=== PATIENT | male | born 1960 | race Caucasian/White ===

== ENCOUNTER → 2018-01-30 | Outpatient (CLI) | payer SELFPAY ==
--- NOTE | 2018-01-30 12:17 | ECHOS ---
STRESS ECHOCARDIOGRAM INDICATIONS: Shortness of breath/fatigue BASELINE HEART RATE: 79 BASELINE BLOOD PRESSURE: 100/59 MAXIMUM HEART RATE: 137 MAXIMUM BLOOD PRESSURE: 215/67 85% MPHR: 139 100% MPHR: 163 METS: 11.3 MAXIMUM STAGE REACHED: 4 TOTAL EXERCISE TIME: 9:45 CLINICAL INFORMATION: History of shortness of breath and fatigue. Baseline heart rate 79 beats per minute. Baseline blood pressure 100/59 mmHg. Baseline 12-lead ECG shows sinus rhythm with normal cardiac intervals, normal ST segments. Patient exercised on a Kwasi protocol for 9 minutes 45 seconds. He was visibly short of breath towards the end of the test. Peak heart rate of 137 beats per minute, hypertensive response to exercise 215/67 mmHg. There was no ECG evidence for ischemia. No arrhythmias were noted. Baseline 2D echo showed normal LV size and systolic function without segmental wall motion abnormalities. At peak exercise, there was augmentation of overall LV contractility without developing any wall motion abnormalities. At recovery, regional global LV systolic function remained normal. IMPRESSION: 1. No obvious ECG or echocardiographic evidence for ischemia. 2. Good exercise capacity with the patient very short of breath by peak exercise. Hypertensive response to exercise was noted. MMODL / IJN: [id number] /
== END | disposition home or self-care (01) ==
LOC: RADNMMAIN 09:38
PROVIDERS: ATTEND Family Medicine
DX: R06.02 Shortness of breath (principal)
CPT/HCPCS: 93017; 93350

== ENCOUNTER 2018-03-30 17:30 | Inpatient (IN) | payer OTHER ==
[2018-03-30] MEDS ORDERED: SODIUM CHLORIDE 0.9% 1,000 ML IV ONE (17:40)
[2018-03-30] MEDS ORDERED: MIDAZOLAM 2 MG/2 ML VIAL ONE (17:44)
[2018-03-30] MEDS ORDERED: MIDAZOLAM 2 MG/2 ML VIAL IV ONE (17:50)
[2018-03-30] MEDS ORDERED: LIDOCAINE 2% INJ 20 MG/ML SQ ONE (17:54)
[2018-03-30] MEDS ORDERED: fentaNYL (PF) 50 MCG/ML 2 ML AMP ONE (17:54)
[2018-03-30] MEDS: fentaNYL (PF) 50 MCG/ML 2 ML AMP IV ONE ×2 (17:55→18:25)
[2018-03-30] MEDS ORDERED: BIVALIRUDIN BOLUS 250 MG/50 ML IV ONE (18:02)
[2018-03-30] MEDS ORDERED: BIVALIRUDIN 250 MG in SODIUM CHLORIDE 0.9% 50 ML IV ONE (18:03)
[2018-03-30] MEDS ORDERED: CLOPIDOGREL 75 MG TAB ONE ×2 (18:03)
[2018-03-30] MEDS ORDERED: CLOPIDOGREL 75 MG TAB PO ONE (18:07)
[2018-03-30] MEDS ORDERED: NITROGLYCERIN 1000MCG/10ML SYRINGE INTRACORON ONE (18:12)
[2018-03-30] MEDS ORDERED: IOPAMIDOL-370 125ML BTL INJ ONE (18:21)
[2018-03-30] MEDS ORDERED: NITROGLYCERIN SL TABS 0.4 MG TAB SUBLINGUAL PRN (18:36)
[2018-03-30] MEDS ORDERED: RX INFO: IV CONTRAST WAS GIVEN 1 EACH MISC MISCELLANE PRN (18:36)
[2018-03-30] MEDS ORDERED: MAG HYDROX/AL HYDROX/SIMETH 30 ML CUP PO PRN (18:36)
[2018-03-30] MEDS ORDERED: ATROPINE SULFATE 0.1 MG/ML 10ML SYRINGE IV PRN (18:36)
--- NOTE | 2018-03-30 18:42 | P.CRDCN ---
History of Present Illness Consult date: 03/30/18 Chief complaint: chest discomfort History of present illness: This is a pleasant 57-year-old gentleman with a past medical history significant for hypertension and dyslipidemia was transferred from the emergency room at [facility] to [facility] for an emergent heart catheterization for an acute anterior ST elevation myocardial infarction. The patient was in his usual state of health until about a few weeks ago when he started experiencing intermittent episodes of neck as well as jaw discomfort. Earlier today, the chest discomfort for was quite persistent and associated with sweating and shortness of breath. Because of that he decided to come to the emergency room at [facility] where an EKG revealed an acute anterior ST elevation myocardial infarction. The patient was transferred emergently and underwent a heart catheterization which revealed the total occlusion of the mid LAD where he underwent successful recanalizing and stenting of the LAD with a good angiographic results and without any complication. Beside that the left heart catheterization revealed elevated left ventricular end-diastolic pressure. The procedure was performed from the right groin. In terms of past medical history, he does have hypertension and dyslipidemia. The patient is a current smoker and he stated that he smoke about one pack per day. There is no family history of coronary artery disease. By the end of the procedure, the patient was pain-free. Past Medical History Past Medical History: Unable to Obtain History of Any Multi-Drug Resistant Organisms: Unobtainable Past Surgical History: Unable to Obtain Past Psychological History: Unable to Obtain Smoking Status: Unknown if ever smoked Past Alcohol Use History: Unable to Obtain Past Drug Use History: Unable to Obtain Medications and Allergies Allergies Allergy/AdvReac Type Severity Reaction Status Date / Time No Known Allergies Allergy Verified 03/30/18 17:53 Physical Exam Vitals: Intake and Output 03/30/18 03/30/18 03/30/18 06:59 14:59 22:59 Intake Total 390 Balance 390 Intake: IV 390 Other: Weight 127.006 kg - Constitutional General appearance: no acute distress - Respiratory Respiratory: bilateral: CTA - Cardiovascular Rhythm: regular Heart sounds: normal: S1, S2 Results Intake and Output 03/30/18 03/30/18 03/30/18 06:59 14:59 22:59 Intake Total 390 Balance 390 Intake: IV 390 Other: Weight 127.006 kg Patient Weight 03/31/18 06:59 Weight 127.006 kg Assessment and Plan Assessment: assessment #[address] elevation myocardial infarction #2 status post PCI of the LAD as described above #3 significant history of smoking Plan #1 dual antiplatelet therapy along with anti-ischemic medication #2 aggressive cholesterol control/high intensity statin #3 smoking cessation was discussed with him as well #4 an echocardiogram was Doppler to evaluate the LV function #5 follow-up with the patient. Thank you for allowing us participate in his care and we will continue following up with him
[2018-03-30] MEDS ORDERED: SODIUM CHLORIDE 0.9% 1,000 ML IV SCH (18:45)
[2018-03-30] MEDS ORDERED: HYDROmorphone 2 MG/ML 1 ML SYRINGE ONE (18:48)
[2018-03-30] MEDS ORDERED: HYDROmorphone 2 MG/ML 1 ML SYRINGE IV ONE (18:49)
[2018-03-30 19:03] LABS: Glucose,Whole Blood 99 mg/dL (75-99)
--- NOTE | 2018-03-30 19:17 | CC ---
CARDIAC CATHETERIZATION REPORT DATE OF SERVICE: March 30, 2018 PERFORMING PHYSICIAN: Kavin Winn MD, color television console monitor. PROCEDURE PERFORMED: 1. Selective right and left coronary angiogram. 2. Left heart catheterization. 3. Successful stenting of the mid LAD using 2.75 x 18 mm Xience SHAHEEN with good angiographic results. INDICATION: This is a pleasant 57-year-old gentleman with history of hypertension and dyslipidemia, as well as significant history of smoking, presented to the emergency room at [facility] with chest discomfort and he was diagnosed with acute inferior ST- elevation myocardial infarction. The decision was made towards an emergent heart catheterization where the patient was transferred to [facility]. APPROACH: Right common femoral artery. COMPLICATION: None. LEVEL OF SEDATION: Moderate with sedation length of 31 minutes. Door to door to balloon was 143 minutes. PROCEDURE DESCRIPTION: After obtaining an informed consent, the patient was brought to the cardiac electrical laboratory technician. The right common femoral artery was cannulated using micropuncture technique and a micropuncture wire passed easily. Then I placed a 6-Bulgarian sheath in the right common femoral artery. After that, I did selective right and left coronary angiogram using JR4 and JL4 catheters. I did left heart catheterization with a JR4 catheter which flipped into the LV, then I did pullback across aortic valve. The procedure was completed without any complication. After that I did intervene on the LAD. Please see a separate paragraph for that. SELECTIVE CORONARY ANGIOGRAM: 1. The RCA is a large caliber vessel and it is a dominant vessel. The RCA is angiographically normal. Distally bifurcates into PDA and PLV branches both are angiographically normal. 2. The left main is a large caliber vessel. It bifurcates into left circumflex, ramus intermedius, and left anterior descending artery. 3. The left circumflex is a large caliber vessel. It is a nondominant vessel with the left circumflex is angiographically normal and in the midportion gives rise into an OM branch which seems to be angiographically normal. 4. The ramus intermedius is a large caliber vessel and seems to be angiographically normal. 5. The LAD, the proximal LAD appeared to have mild disease only. The mid LAD is 100% occluded by the bifurcation of a medium-sized diagonal branch. HEMODYNAMICS: The left ventricular end-diastolic pressure was 22 mmHg and no gradient was identified across aortic valve. PCI OF THE LAD: Anticoagulation was initiated using Angiomax. The left main was engaged using JL4 guiding catheter. I did cross the acute total occlusion of the mid in the mid LAD using a whisper wire and I did after that balloon angioplasty using 2.5 x 12 mm balloon. After that, I deployed 275 x 18 mm Xience SHAHEEN where the stent was positioned under fluoroscopy guidance and deployed under its nominal pressure. The following angiogram showed good angiographic results and the procedure was completed without any complication. CONCLUSION: 1. Acute anterior ST-elevation myocardial infarction. 2. Acute total occlusion of the mid LAD, which was stented with good angiographic results as described above. 3. Normal right coronary artery. 4. Normal left main coronary artery. 5. Normal left circumflex coronary artery. 6. Normal ramus intermedius coronary artery. POSTPROCEDURE MANAGEMENT: 1. Dual antiplatelet therapy. 2. High-intensity statin with aggressive cholesterol control. 3. An echocardiogram to evaluate the LV function. 4. Follow up with the patient. JOSE / LUPEN: [id number] /
--- NOTE | 2018-03-30 19:38 | LTR ---
March 30, 2018 To: Dr. Chaparro Re: Leonardo Lara (60) Dear Dr. Chaparro, Mr. Leonardo Lara presented to the emergency room at [facility] with chest discomfort and was diagnosed with acute inferior ST-elevation myocardial infarction. He was transferred emergently to [facility], where he underwent an emergent heart catheterization and was found to have an acute total occlusion of the LAD, which was stented with good angiographic results and without any complication. Thank you for allowing us to participate in his care. Please do not hesitate to call if you have any question or concern. Sincerely, Kavin Winn MD MMJESSIEL / LUPEN: [id number] /
[2018-03-30] MEDS: ATORVASTATIN 80 MG TAB PO SCH (20:51)
[2018-03-30] MEDS: BUTALB/APAP/CAFF 50-325-40MG TAB PO PRN (20:51)
[2018-03-30] MEDS ORDERED: ZOLPIDEM 5 MG TAB PO PRN (21:00)
[2018-03-30] MEDS: METOPROLOL TARTRATE 25 MG TAB PO SCH (23:17)
[2018-03-31 05:03] LABS: Basophils % (A) 0 %; Eosinophils % (A) 0 %; HCT 42.8 % (39.0-53.0); HGB 14.7 gm/dL (13.0-17.5); Lymphocytes % (A) 19 %; MCH 29.5 pg (25.0-35.0); MCHC 34.4 g/dL (31.0-37.0); MCV 85.7 fL (80.0-100.0); Monocytes # (A) 1.1 k/uL (0-1.0); Monocytes % (A) 10 %; Neutrophils # (A) 7.4 k/uL (1.3-7.7); Neutrophils % (A) 69 %; Platelet Count 187 k/uL (150-450); RBC 4.99 m/uL (4.30-5.90); WBC 10.6 k/uL (3.8-10.6)
[2018-03-31 05:25] LABS: Anion Gap 12 mmol/L; Blood Urea Nitrogen 14 mg/dL (9-20); Carbon Dioxide 26 mmol/L (22-30); Chloride 97 mmol/L (98-107); Glucose 122 mg/dL (74-99); Potassium 3.9 mmol/L (3.5-5.1); Sodium 135 mmol/L (137-145)
[2018-03-31] MEDS: BUTALB/APAP/CAFF 50-325-40MG TAB PO PRN (06:33)
[2018-03-31] MEDS: CLOPIDOGREL 75 MG TAB PO SCH (08:01)
[2018-03-31] MEDS: METOPROLOL TARTRATE 25 MG TAB PO SCH ×2 (08:01→19:55)
[2018-03-31] MEDS ORDERED: ASPIRIN 325 MG TAB PO SCH (09:00)
[2018-03-31] MEDS ORDERED: LISINOPRIL 2.5 MG TAB PO SCH (09:00)
--- NOTE | 2018-03-31 09:39 | PN ---
PROGRESS NOTE Mr. Lara came in with ST elevation [place] yesterday underwent stenting of mid LAD. This morning, he is doing well, hemodynamically stable. Denies any chest pain. Right groin is clean and dry. Blood pressure is 120/70, pulse rate is 76 per minute. I am recommending that we continue his current medications. We will increase lisinopril and check another additional troponin. Echocardiogram revealed hypokinesia involving the anteroapical and inferoapical portion of left ventricle with ejection fraction of about 40% or so. We will optimize medical therapy, increase activity and move him to telemetry today. No JVD or carotid bruit. S1, S2 heard normally. No significant murmurs. Lungs reveal decent air entry. Abdomen is soft, nontender. Lower extremities reveal palpable pulses. No edema. Central nervous system is normal. EKG revealed QS pattern in leads V1 to V4 suggesting that the patient may have already had some damage to the anterior wall. Discussed this with the patient. We will move him to telemetry today. MMODL / IJN: [id number] /
[2018-03-31] MEDS ORDERED: FLUTICASONE 50MCG/SPRAY NASAL 16GM EA NOSTRIL PRN (10:50)
[2018-03-31] MEDS ORDERED: NAPROXEN 250 MG TAB PO PRN (10:50)
[2018-03-31 11:03] VITALS: BMI 35.6
--- NOTE | 2018-03-31 13:08 | ECHOF ---
Referral Reason:STEMI MEASUREMENTS -------- HEIGHT: 182.9 cm WEIGHT: 126.1 kg BP: 183/84 IVSd: 1.3 cm (0.6 - 1.1) LVIDd: 4.1 cm (3.9 - 5.3) LVPWd: 1.3 cm (0.6 - 1.1) IVSs: 1.6 cm LVIDs: 2.5 cm LVPWs: 2.2 cm Ao Diam: 3.2 cm (2.0 - 3.7) AV Cusp: 1.9 cm (1.5 - 2.6) LA Diam: 3.8 cm (2.7 - 3.8) MV EXCURSION: 18.742 mm (> 18.000) MV EF SLOPE: 116 mm/s (70 - 150) EPSS: 0.5 cm MV E Al: 0.81 m/s MV DecT: 189 ms MV A Al: 0.96 m/s MV E/A Ratio: 0.85 RAP: 5.00 mmHg RVSP: 12.42 mmHg FINDINGS -------- Sinus rhythm. This was a technically difficult study with suboptimal views. The left ventricular size is normal. There is mild concentric left ventricular hypertrophy. Overa ll left ventricular systolic function is moderately impaired with, an EF between 35 - 40 %. Mid ant erior LV wall motion is hypokinetic. Apical anterior LV wall motion is hypokinetic. Apical late ral LV wall motion is hypokinetic. Apical inferior LV wall motion is hypokinetic. Apical septum LV wall motion is hypokinetic. The right ventricle is normal in size and function. The left atrium is normal in size. The right atrium is normal in size. Lumason used The aortic valve is trileaflet, and appears structurally normal. No aortic stenosis or regurgitation. The mitral valve is normal. There is trace mitral regurgitation. Trace tricuspid regurgitation present. Right ventricular systolic pressure is normal at < 35 mmHg. The right ventricular systolic pressure, as measured by Doppler, is 12.42mmHg. There is no pulmonic regurgitation present. The aortic root, ascending aorta and aortic arch are normal. There is no pericardial effusion. CONCLUSIONS -------- 1. Sinus rhythm. 2. This was a technically difficult study with suboptimal views. 3. The left ventricular size is normal. 4. There is mild concentric left ventricular hypertrophy. 5. Overall left ventricular systolic function is moderately impaired with, an EF between 35 - 40 %. 6. Mid anterior LV wall motion is hypokinetic. 7. Apical anterior LV wall motion is hypokinetic. 8. Apical lateral LV wall motion is hypokinetic. 9. Apical inferior LV wall motion is hypokinetic. 10. Apical septum LV wall motion is hypokinetic. 11. The left atrium is normal in size. 12. Lumason used 13. The aortic valve is trileaflet, and appears structurally normal. No aortic stenosis or regurgitat ion. 14. There is trace mitral regurgitation. 15. Trace tricuspid regurgitation present. 16. Right ventricular systolic pressure is normal at < 35 mmHg. 17. There is no pulmonic regurgitation present. 18. The aortic root, ascending aorta and aortic arch are normal. 19. There is no pericardial effusion. RANGE EXAMINER: Mamie Steinberg RDCS
[2018-03-31] MEDS: CEPHALEXIN 500 MG CAP PO SCH ×2 (17:48→19:55)
--- NOTE | 2018-03-31 18:09 | HP ---
HISTORY AND PHYSICAL CHIEF COMPLAINT: Chest pain. HISTORY OF PRESENT ILLNESS: This gentleman presented to the emergency room after he developed a pressure-like sensation in the middle of his chest which radiated straight through into the back. He was short of breath, but he was not diaphoretic. He came to the emergency room, where he was diagnosed as having acute GA and he was taken to the medical laboratory scientist, where he underwent stenting of the LAD, which was virtually completely blocked. REVIEW OF SYSTEMS: He has had no headaches, change in vision or hearing, syncope, etc. He is having some problems with sinusitis. He has had no shortness of breath, cough, hemoptysis, murmurs, rheumatic fever, abdominal pain, nausea, vomiting, hematemesis, melena, hematochezia, jaundice, hepatitis, hematuria, frequency, urgency, arthralgias, diabetes, etc. Past medical history, family history, personal and social histories reveal that he is not allergic to any medication and he does not take any. He does smoke. PHYSICAL EXAMINATION: Blood pressure is 117/64 with a pulse of 83, respirations of 15. He is afebrile. In general, he appeared to be well-developed, well-nourished, in no acute distress. Skin color is normal. Skin is warm, dry. Lymph nodes are not enlarged. Head, ears, eyes, nose, mouth and throat were normal. Neck veins not distended. Thyroid is not enlarged. Chest is clear. Cardiac is normal sinus rhythm and no murmurs or extra sounds. The abdomen is soft, nontender without any visceromegaly or masses. Bowel sounds are present. Extremities are normal. Neurologically, he is intact. IMPRESSION: 1. Acute myocardial infarction. 2. Atherosclerotic cardiovascular disease. 3. Nicotine abuse. PLAN: Follow with Cardiology. MMODL / IJN: [id number] /
--- NOTE | 2018-03-31 18:15 | PN ---
PROGRESS NOTE DATE OF SERVICE: 03/31/2018 CHIEF COMPLAINT: Acute NV. HISTORY OF PRESENT ILLNESS: This gentleman is doing well post stenting of his LAD. He is complaining of some frontal and maxillary sinus congestion and probably has sinusitis. PHYSICAL EXAM: His chest is clear. The cardiac is normal. The abdomen is soft, nontender. IMPRESSION: 1. Acute myocardial infarction. 2. Sinusitis. PLAN: 1. Progress activity. 2. Follow with Cardiology. 3. Keflex 500 mg 4 times a day for sinusitis. MMODL / IJN: [id number] /
[2018-03-31] MEDS: LISINOPRIL 5 MG TAB PO SCH (19:55)
[2018-03-31] MEDS: ATORVASTATIN 80 MG TAB PO SCH (19:55)
[2018-04-01 07:06] LABS: Anion Gap 13 mmol/L; Blood Urea Nitrogen 18 mg/dL (9-20); Calcium 9.1 mg/dL (8.4-10.2); Carbon Dioxide 28 mmol/L (22-30); Chloride 100 mmol/L (98-107); Glucose 99 mg/dL (74-99); Potassium 4.6 mmol/L (3.5-5.1); Sodium 141 mmol/L (137-145)
[2018-04-01] MEDS: CEPHALEXIN 500 MG CAP PO SCH ×4 (07:45→19:37)
[2018-04-01] MEDS: ASPIRIN 81 MG PO SCH (07:45)
[2018-04-01] MEDS: METOPROLOL TARTRATE 25 MG TAB PO SCH ×2 (07:45→19:37)
[2018-04-01] MEDS: CLOPIDOGREL 75 MG TAB PO SCH (07:45)
--- NOTE | 2018-04-01 17:31 | PN ---
PROGRESS NOTE DATE OF SERVICE: 04/01/2018 CHIEF COMPLAINT: Acute MO. HISTORY OF PRESENT ILLNESS: This gentleman is doing well. He feels fine. He has had no shortness of breath, chest pain, etc. PHYSICAL EXAM: Chest is clear. Cardiac exam is normal. The abdomen is soft, nontender. IMPRESSION: Acute myocardial infarction. PLAN: Probably home tomorrow. His troponin is still up significantly. MMODL / IJN: [id number] /
--- NOTE | 2018-04-01 18:01 | PN ---
PROGRESS NOTE Mr. Lara suffered an anterior VT, underwent stenting of LAD by Dr. Winn the day before yesterday. He is doing better now. Ejection fraction is 35% to 40%. He is on appropriate medications. We will increase activity, see how he does. If he has no further ectopy and does well, he will be discharged tomorrow. Vital signs are stable. No JVD or carotid bruit. S1, S2 heard normally. Lungs are clear. Abdomen and lower extremity exam is unchanged. MMODL / IJN: [id number] /
[2018-04-01] MEDS: ATORVASTATIN 80 MG TAB PO SCH (19:37)
[2018-04-01] MEDS: LISINOPRIL 5 MG TAB PO SCH (19:37)
[2018-04-02 03:51] VITALS: TEMP 97.2
[2018-04-02] MEDS: ASPIRIN 81 MG PO SCH (08:15)
[2018-04-02] MEDS: CEPHALEXIN 500 MG CAP PO SCH ×2 (08:16→11:37)
[2018-04-02] MEDS: CLOPIDOGREL 75 MG TAB PO SCH (08:16)
[2018-04-02] MEDS: METOPROLOL TARTRATE 25 MG TAB PO SCH (08:16)
[2018-04-02 08:19] VITALS: RESP 16
--- NOTE | 2018-04-02 10:47 | PN ---
PROGRESS NOTE Mr. Lara suffered from an anterior [place], was seen by Dr. Winn underwent stenting of LAD. He is doing very well. Complains of some fatigue, but no chest pain, ambulating without symptoms. Vital signs are stable. There is evidence of QS pattern in leads V1 to V5 suggestive of completed [place]. Ejection fraction is impaired in the range of 35% to 40%. I am recommending that we pursue medical therapy, risk factor modification, smoking cessation. I have reviewed his medications. He can be discharged and he will see Dr. Winn in 7 to 10 days. Vital signs are stable. There is no JVD. S1-S2 heard normally. Lungs are clear. Abdomen soft. Lower extremities reveal normal pulses. No edema. Right groin is clean and dry. MMODL / IJN: [id number] /
[2018-04-02 11:41] VITALS: BP 117/66; PULSE 58
--- NOTE | 2018-04-02 20:40 | DS ---
DISCHARGE SUMMARY CHIEF COMPLAINT: Chest pain. HISTORY OF PRESENT ILLNESS AND PHYSICAL EXAM: Details of this man's history and physical can be found in the initial workup. LABORATORY STUDIES: While he is in the hospital, he had laboratory studies, details which can be found in the laboratory section of the chart. COURSE IN HOSPITAL: After admission, he was placed on bedrest and started on intravenous fluids and taken the vp lab and underwent stenting of the LAD. Postoperatively, he did well. Activity was slowly increased and he was able to go home on the and will follow up with us in several days as well as Cardiology. FINAL DIAGNOSES: Acute myocardial infarction. OPERATIONS: Cardiac cath and stenting of the LAD. CONSULTATIONS: Cardiology. He is improved. MMODL / IJN: [id number] /
== END 2018-04-02 13:33 | disposition home or self-care (01) | DRG 247 ==
LOC: EC 17:30 → 6ICU 17:37 → 6SEL 03-31 10:33
PROVIDERS: ADMIT Family Medicine; ATTEND Family Medicine
PROC: 027034Z Dilation of Coronary Artery, One Artery with Drug-eluting Intraluminal Device, Percutaneous Approach (ICD-10-PCS; principal; 2018-03-30 17:46)
PROC: B2151ZZ Fluoroscopy of Left Heart using Low Osmolar Contrast (ICD-10-PCS; principal; 2018-03-30 17:46)
PROC: 4A023N7 Measurement of Cardiac Sampling and Pressure, Left Heart, Percutaneous Approach (ICD-10-PCS; principal; 2018-03-30 17:46)
PROC: B2111ZZ Fluoroscopy of Multiple Coronary Arteries using Low Osmolar Contrast (ICD-10-PCS; principal; 2018-03-30 17:46)
DX: I21.09 ST elevation (STEMI) myocardial infarction involving other coronary artery of anterior wall (principal); E78.5 Hyperlipidemia, unspecified; F17.200 Nicotine dependence, unspecified, uncomplicated; I10 Essential (primary) hypertension; I25.10 Atherosclerotic heart disease of native coronary artery without angina pectoris; J32.1 Chronic frontal sinusitis; J32.0 Chronic maxillary sinusitis
CPT/HCPCS: 80048; 83735; 84484; 85025; 93306; 93458

== ENCOUNTER 2019-05-05 13:25 | Emergency (ER) | payer OTHER ==
[2019-05-05 13:36] VITALS: BP 156/85; PULSE 66; RESP 18; TEMP 98.7
--- NOTE | 2019-05-05 14:05 | ED ---
Skin/Abscess/FB HPI - General Chief complaint: Skin/Abscess/Foreign Body Stated complaint: Abscess/Lac on Arm Time Seen by Provider: 05/05/19 13:42 Source: patient, RN notes reviewed Mode of arrival: ambulatory Limitations: no limitations - History of Present Illness Initial comments: This is a 58-year-old male presents emergency Department chief complaint of infection to his right arm. Patient states on Friday is very narrow [place] states a branch fell striking his arm. Patient states it causes a small cut but did not think much of a he did clean it, wrapped it. Patient states he kept it wrapped with an [place] wrap throughout the weekend states he [place] and uncoordinated noticed it was swollen. Patient states his had no prior skin infections. Denies IV drug use. Patient denies any fever, chills, night sweats patient has full range of motion right elbow no pain - Related Data Home Medications Medication Instructions Recorded Confirmed Fluticasone Propionate [Flonase 2 spray EA NOSTRIL DAILY PRN 03/30/18 03/30/18 Allergy Relief] guaiFENesin-DM 600/30MG [Mucinex 1 tab PO Q12HR PRN 03/30/18 03/30/18 Dm] Previous Rx's Medication Instructions Recorded Aspirin 81 mg PO DAILY #30 chew 04/02/18 Atorvastatin [Lipitor] 80 mg PO HS #30 tab 04/02/18 Cephalexin [Keflex] 500 mg PO QID #30 cap 04/02/18 Clopidogrel [Plavix] 75 mg PO DAILY #30 tab 04/02/18 Lisinopril [Zestril] 5 mg PO HS #30 tab 04/02/18 Metoprolol Tartrate [Lopressor] 25 mg PO BID #60 tab 04/02/18 Nitroglycerin Sl Tabs [Nitrostat] 0.4 mg SUBLINGUAL Q5M PRN #25 tab 04/02/18 Cephalexin [Keflex] 500 mg PO Q6HR #40 cap 05/05/19 Sulfamethox-Tmp 800-160Mg [Bactrim 1 each PO Q12HR #20 tab 05/05/19 Ds] Allergies Allergy/AdvReac Type Severity Reaction Status Date / Time No Known Allergies Allergy Verified 05/05/19 13:35 Review of Systems ROS Statement: Those systems with pertinent positive or pertinent negative responses have been documented in the HPI. ROS Other: All systems not noted in ROS Statement are negative. Past Medical History Past Medical History: Osteoarthritis (OA) Additional Past Medical History / Comment(s): in past took med for bp and cholesterol but after losing wt no longer needed, past stress test, migraines, approx 20 years ago had an episode of seizure like activity- none since and never placed on any meds. past broken ankles(sx), broken a bone in the rt orbit has wire in place, tubes in ears, History of Any Multi-Drug Resistant Organisms: Unobtainable Past Surgical History: Unable to Obtain Additional Past Surgical History / Comment(s): 03-30-18 heart cath w/stent, derian ankle sx plate/screws.sinuplasty, repair of broken bone rt orbit area-has wire in place. Past Anesthesia/Blood Transfusion Reactions: Previous Problems w/ Anesthesia, Motion Sickness Additional Past Anesthesia/Blood Transfusion Reaction / Comment(s): early waking Past Psychological History: Unable to Obtain Smoking Status: Current some day smoker Past Alcohol Use History: Occasional Past Drug Use History: None Reported - Past Family History Father Family Medical History: CVA/TIA, Diabetes Mellitus, Osteoarthritis (OA) Mother Family Medical History: Diabetes Mellitus, Thyroid Disorder General Exam Limitations: no limitations General appearance: alert, in no apparent distress Head exam: Present: atraumatic, normocephalic, normal inspection Respiratory exam: Present: normal lung sounds bilaterally. Absent: respiratory distress, wheezes, rales, rhonchi, stridor Cardiovascular Exam: Present: regular rate, normal rhythm, normal heart sounds. Absent: systolic murmur, diastolic murmur, rubs, gallop, clicks Extremities exam: Present: other (Right elbow there is an area of erythema approximately 6 cm x 4 cm with a centralized 3 cm abscess minimal fluctuant, neurovascular intact full range of motion) Neurological exam: Present: alert, oriented X3, CN II-XII intact Skin exam: Present: warm, dry, intact, normal color. Absent: rash Course Vital Signs 05/05/19 13:32 Temperature 98.7 F Pulse Rate 66 Respiratory 18 Rate Blood Pressure 156/85 O2 Sat by Pulse 100 Oximetry Procedures - Incision & Drainage Consent Obtained: verbal consent Site: upper extremity (Right arm) Size (cm): 3 Anesthetic Used: lidocaine 1%, without epi Amount (mLs): 7 I&D Cleaning Method: Chloroprep Sterile Field Used?: No Scalpel Used: #11 I&D Drainage Obtained: Pus, Blood Culture Obtained?: Yes Patient Tolerated Procedure: well, no complications Medical Decision Making - Medical Decision Making 58-year-old male present for abscess to his right arm. This was drained emergency department with no complications patient will be discharged on antibiotics close follow-up was directed, warm compresses wound care. X-rays were obtained which showed possibility of foreign body though this is not in the location of the abscess Disposition Clinical Impression: Abscess of right arm Disposition: HOME SELF-CARE Condition: Stable Instructions (If sedation given, give patient instructions): Abscess (ED), Abscess Incision and Drainage (ED) Additional Instructions: Please return to the Emergency Department if symptoms worsen or any other concerns. Prescriptions: Sulfamethox-Tmp 800-160Mg [Bactrim Ds] 1 each PO Q12HR #20 tab Cephalexin [Keflex] 500 mg PO Q6HR #40 cap Is patient prescribed a controlled substance at d/c from ED?: No Referrals: None,Stated [Primary Care Provider] - 1-2 days Time of Disposition: 15:06
[2019-05-05] MEDS ORDERED: LIDOCAINE 1% INJ 10MG/ML (20 ML MDV) SQ ONE (14:13)
--- NOTE | 2019-05-05 14:21 | XR ---
EXAMINATION TYPE: XR elbow complete RT DATE OF EXAM: 05/05/2019 CLINICAL HISTORY: Right elbow pain after being poked by a tree branch with subsequent infection. TECHNIQUE: Frontal, lateral and oblique images of the right elbow are obtained. COMPARISON: None FINDINGS: There is no acute fracture/dislocation evident in the right elbow. No abnormal fat pad si gns are seen. There is diffuse soft tissue swelling surrounding the right elbow joint. There is a 2 m m punctate density that could represent a small radiopaque foreign body seen at the dorsal and medial aspect of the proximal forearm. IMPRESSION: There is no acute fracture or dislocation in the right elbow. Diffuse soft tissue swelli ng and possible punctate foreign body at the dorsal medial forearm is marked on the images.
== END 2019-05-05 15:20 | disposition home or self-care (01) ==
LOC: EC 13:25
DX: L02.413 Cutaneous abscess of right upper limb (principal); M19.90 Unspecified osteoarthritis, unspecified site; F17.200 Nicotine dependence, unspecified, uncomplicated; Z96.698 Presence of other orthopedic joint implants; W20.8XXA Other cause of strike by thrown, projected or falling object, initial encounter; Y93.89 Activity, other specified
CPT/HCPCS: 87070; 87205; 73080; 99283; 10060; J2001; 87077; 87186

== ENCOUNTER → 2022-10-03 | Outpatient (CLI) | payer OTHER ==
--- NOTE | 2022-10-03 17:01 | XR ---
EXAMINATION TYPE: XR shoulder complete 3 views LT DATE OF EXAM: 10/03/2022 Comparison: None Clinical History: 61-year-old male [id number] ACUTE LT SHOULDER PAIN Findings: There appears to be severe loss of the inferior half of the glenohumeral cartilage and joint space. B zahraa irregularity at the greater tuberosity. At least mild degenerative change at the AC joint. The ex am is underpenetrated. No evident acute fracture or dislocation. Impression: Limited, underpenetrated exam. There appears to be underlying severe left humeral joint OA. Suspect c hronic rotator cuff tendinopathy. If further assessment of the cuff is desired, MRI can be performed.
== END | disposition home or self-care (01) ==
LOC: RADXRWHC 12:56
PROVIDERS: ATTEND Internal Medicine
DX: M25.512 Pain in left shoulder (principal)

== ENCOUNTER → 2022-10-09 | Outpatient (CLI) | payer OTHER ==
--- NOTE | 2022-10-09 15:51 | US ---
EXAMINATION TYPE: US carotid duplex BILAT DATE OF EXAM: 10/09/2022 COMPARISON: NONE CLINICAL HISTORY: I65.23 OCCLUSION AND STENOSIS B/L CAROTID ART. TECHNIQUE: Carotid duplex ultrasound examination. Indirect Doppler criteria was utilized. FINDINGS: EXAM MEASUREMENTS: RIGHT: Peak Systolic Velocity (PSV) cm/sec ----- Right CCA: 99.4 ----- Right ICA: 105 ----- Right ECA: 174 ICA/CCA ratio: 1.06 RIGHT: End Diastole cm/sec ----- Right CCA: 19.5 ----- Right ICA: 30.5 ----- Right ECA: 35.3 LEFT: Peak Systolic Velocity (PSV) cm/sec ----- Left CCA: 93.5 ----- Left ICA: 91.8 ----- Left ECA: 194 ICA/CCA ratio: 0.98 LEFT: End Diastole cm/sec ----- Left CCA: 16.6 ----- Left ICA: 27.0 ----- Left ECA: 28.4 VERTEBRALS (direction of flow): Right Vertebral: Antegrade Left Vertebral: Antegrade Rhythm: Normal DESIGN TRANSFERRER NOTES: Mild plaque bilateral bifurcations. Increased velocities bilateral ECA's IMPRESSION: 1. Bilateral atheromatous plaquing without significant flow-limiting stenosis within the internal car otid arteries. 2. Some narrowing of the external carotid arteries may be present. Criteria for Assigning % of Stenosis / Diameter reduction (Estimation based on the indirect measurements of the internal carotid artery velocities (ICA PSV). 1. Normal (no stenosis)=ICA PSV < 125 cm/s: ratio < 2.0: ICA EDV<40 cm/s. 2. Less than 50% stenosis=ICA PSV < 125 cm/s: ratio < 2.0: ICA EDV<40 cm/s. 3. 50 to 69% stenosis=ICA PSV of 125 to 230 cm/s: ration 2.0 ? 4.0: ICA EDV 40-100 cm/s. 4. Greater than 70% stenosis to near occlusion= ICA PSV > 230 cm/s: ratio > 4.0: ICA EDV > 100 cm/s. 5. Near occlusion= ICA PSV velocities may be low or undetectable: variable ratio and ICA EDV. 6. Total occlusion=unable to detect flow.
== END | disposition home or self-care (01) ==
LOC: RADUSWWP 11:04
PROVIDERS: ATTEND Internal Medicine
DX: I65.23 Occlusion and stenosis of bilateral carotid arteries (principal)
CPT/HCPCS: 93880

== ENCOUNTER → 2022-10-11 | Outpatient (CLI) | payer OTHER ==
--- NOTE | 2022-10-11 17:02 | CTL ---
EXAMINATION TYPE: CT Low Dose Lung DATE OF EXAM ORDERED: 10/11/2022 HISTORY: . Lung cancer screening CT DLP: 141.[address] CTDI: 4.3 mGy Automated exposure control for dose reduction was used. SCREENING VISIT: Initial COMPARISON: None TECHNIQUE: Low dose computed tomography scan was performed through the chest at 1 mm thick sections a nd reconstructed images in the coronal plane at [address] DIAGNOSTIC QUALITY: Limited, but interpretable FINDINGS: LUNG NODULES: None. LUNGS: COPD: Severity: None Fibrosis: Severity: None Lymph nodes: No enlarged lymph nodes. Scattered small lymph nodes or within the mediastinum Other findings: None RIGHT PLEURAL SPACE: Effusion: None Calcification: None Thickening: None Pneumothorax: None LEFT PLEURAL SPACE: Effusion: None Calcification: None Thickening: None Pneumothorax: None Heart Heart Size: Normal Coronary calcification: Moderate to severe Pericardial effusion: None OTHER FINDINGS: Upper abdomen: Normal Bony thorax: Normal Supraclavicular region: Normal Other: Ascending thoracic aorta at the level the main pulmonary artery measures 3.7 cm. The main pul monary artery at the bifurcation measures 3.0 cm. IMPRESSION: No suspicious changes to suggest primary or metastatic neoplasm FOLLOW UP CT CHEST RECOMMENDATION: Low-dose CT chest [address] LUNG RAD: Lung-Rad 1 Negative
== END | disposition home or self-care (01) ==
LOC: RADCTMAIN 12:16
PROVIDERS: ATTEND Internal Medicine
DX: Z12.2 Encounter for screening for malignant neoplasm of respiratory organs (principal)
CPT/HCPCS: 71271

== ENCOUNTER → 2022-10-25 | Outpatient (CLI) | payer OTHER ==
[~2022-10-25] MED LIST: REGADENOSON 0.4 MG/5 ML SYRINGE IV ONE
--- NOTE | 2022-10-25 12:10 | CA ---
Lexiscan Nuclear Stress Test Report Name: Leonardo Lara Exam Date: 10/25/2022 10:03 Exam Location: [place] Stress Ht (in): 73 Wt (lb): 285 BSA: 2.50 Ordering Phys: Harlan Ingram MD Referring Phys: Harlan Ingram MD Technologist: Presley Bernstein Age: 61 Gender: M : 1960 Procedure CPT: Indications: I25.119 Coronary Artery Disease ICD-10 Codes: Patient History: DIFFICULTY IN BREATHING, NUMBNESS IN FACE/NECK, HTN, CURRENT SMOKER (0.25 PPD X 45 YEARS), PRIOR NE, PRIOR CATH, PRIOR STENT, Medications: LISINOPRIL, METOPROLOL, FUROSEMIDE, ASA, Meds past 24 hrs: Pretest Chest Pain: STRESS TEST Lexiscan Protocol Exercise Duration (min:sec): 02:[address] Depressions (mm): Angina Score: Gannon Score: Resting HR (bpm): 72 Peak HR (bpm): 80 Resting BP (mmHg): / Peak BP (mmHg): 144 / 67 MPHR: 159 Target HR: 135 % MPHR: 50 METS: 1.0 Total Dose: Peak Dose: Atropine: Double Product: 72609 BP Response: Stress Termination: Stress Symptoms: Stress Summary: ECG ANALYSIS Resting ECG: Sinus rhythm. Normal conduction. No arrhythmias. Stress ECG: No ECG changes from baseline with Lexiscan infusion. CONCLUSIONS No ECG evidence of ischemia with Lexiscan infusion. Nuclear test results to follow. Dr. Yamilet Street MD (Electronically Signed) Final Date: 25 October 2022 12:09
--- NOTE | 2022-10-25 12:16 | NM ---
EXAMINATION TYPE: NM stress lexiscan cardiolite DATE OF EXAM: 10/25/2022 COMPARISON: NONE HISTORY: I25.119 ATHSCL HEART DISEASE OF [place] [facility] ART TECHNIQUE: After the intravenous administration of 9.8 mCi Tc 99m Sestamibi - Cardiolite resting SPE CT images acquired 60 minutes post injection. The patient received 0.4mg Lexiscan, 25.2 mCi Tc 99m Sestamibi - Stress images obtained [address] injection FINDINGS: Review of stress and rest SPECT images demonstrates fixed large perfusion defect within the cardiac a pex. Gated analysis shows mild global hypokinesis with an estimated left ventricular ejection fractio n of 35 %. TID is elevated measuring 1.28. This can be seen in the setting of global, multivessel ind ucible ischemia. 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 Estimated LVEF is moderate ly diminished at 35%. Further evaluation as clinically indicated. No scintigraphic evidence for reversible ischemia.
== END | disposition home or self-care (01) ==
LOC: RADNMMAIN 08:09
PROVIDERS: ATTEND Internal Medicine
DX: I25.119 Atherosclerotic heart disease of native coronary artery with unspecified angina pectoris (principal); I25.5 Ischemic cardiomyopathy; I10 Essential (primary) hypertension; F17.210 Nicotine dependence, cigarettes, uncomplicated
CPT/HCPCS: 93017; 78452; A9500; J2785

== ENCOUNTER → 2024-01-10 | Outpatient (CLI) | payer OTHER ==
--- NOTE | 2024-01-16 10:02 | MR ---
EXAMINATION TYPE: MR shoulder RT wo con DATE OF EXAM: 01/10/2024 COMPARISON: None. HISTORY: Right shoulder pain with difficulty lifting arm overhead for 8 years per patient. TECHNIQUE: Multiplanar, multisequence imaging of the right shoulder is performed without contrast. FINDINGS: Slightly suboptimal with inhomogeneity of the fat saturation pulse. Rotator Cuff: Intact supraspinatus and infraspinatus tendons. Intact subscapularis tendon. Rotator cu ff muscle bulk is maintained. Acromioclavicular Joint: Moderate narrowing with mild/moderate spurring. Slight superior positioning of the inferior margin of the distal clavicle relative to the inferior margin of the acromion. Glenohumeral Joint: Small to moderate-sized joint effusion. Significant narrowing particularly superi felicity. High positioning of the humeral head. Prominent bony projection from the inferior medial aspect of the humeral head. Labrum: Increased signal superior labrum consistent with tear. Biceps Tendon: The long head of biceps is in normal location within bicipital groove. Bone marrow signal: Heterogeneous diminished T1 and increased T2 signal involving the humeral head adams periorly and medially. Similar findings involving the osseous glenoid. Other: Focal moderate fluid collection in the subdeltoid/subacromial bursa. IMPRESSION: 1. Advanced glenohumeral joint arthropathy is present as detailed above. 2. No retracted rotator cuff tear. 3. Superior labral tear may be degenerative in etiology. 4. Moderate subdeltoid/subacromial bursitis.
--- NOTE | 2024-01-16 10:06 | MR ---
EXAMINATION TYPE: MR shoulder LT wo con DATE OF EXAM: 01/10/2024 COMPARISON: None. HISTORY: Left shoulder pain with difficulty raising arm overhead for 8 years. TECHNIQUE: Multiplanar, multisequence imaging of the left shoulder is performed without contrast. FINDINGS: Suboptimal study with inhomogeneity of the fat saturation pulse Rotator Cuff: Intact supraspinatus and infraspinatus tendons. Intact subscapularis tendon. Rotator cu ff muscle bulk preserved. Acromioclavicular Joint: Slight superior positioning of the inferior margin of the distal clavicle re lative to the inferior margin of the acromion. Moderate spurring and narrowing at this level is seen. Glenohumeral Joint: Small to moderate size joint effusion. Significant narrowing with bony projection from the inferior medial aspect of the humeral head. Loss of spherical shape to the femoral head. Labrum: Increased signal superior labrum consistent with tear. Biceps Tendon: The long head of biceps is in normal location within bicipital groove. Bone marrow signal: Mild diminished T1 and increased T2 signal involving the humeral head greatest víctor ng the medial aspect and adjacent osseous glenoid with articulating subchondral cystic change. Other: No additional significant abnormality is appreciated. IMPRESSION: 1. Advanced glenohumeral joint arthropathy in the left shoulder is present as detailed above with sim ilar findings noted in the opposite right shoulder. 2. No retracted rotator cuff tear. Superior labral tear is present may be degenerative in etiology.
== END | disposition home or self-care (01) ==
LOC: RADMRIMAIN 10:28
PROVIDERS: ATTEND Orthopaedic Surgery
DX: M19.011 Primary osteoarthritis, right shoulder (principal); M19.012 Primary osteoarthritis, left shoulder; M75.102 Unspecified rotator cuff tear or rupture of left shoulder, not specified as traumatic; M75.101 Unspecified rotator cuff tear or rupture of right shoulder, not specified as traumatic; M75.51 Bursitis of right shoulder